=== PATIENT | female | born 1975 | race Hispanic/Latino ===

== ENCOUNTER 2019-03-19 21:02 | Emergency (ER) | payer SELFPAY ==
[2019-03-19 22:25] LABS: Absolute Lymphocytes (CBC) 2.5 K/uL (0.7-4.9); Basophils % 1.1 % (0-1.3); Hematocrit 43.5 % (36.0-45.0); Lymphocytes % 24.6 % (15.3-44.8); MPV 8.7 fL (7.6-11.3); RBC Red Blood Cell Count 5.17 M/uL (3.86-4.86)
[2019-03-19] MEDS ORDERED: ONDANSETRON 4 MG/2 ML VIAL ONE (22:25)
[2019-03-19] MEDS ORDERED: NA CHLORIDE 0.9% 1,000 ML ONE ×2 (22:25→23:27)
[2019-03-19] MEDS ORDERED: MORPHINE 4 MG/ML SYR ONE (22:25)
[2019-03-19 22:48] LABS: Albumin 3.5 g/dL (3.4-5.0); Bilirubin Total 0.3 mg/dL (0.2-1.0); Potassium 3.8 mmol/L (3.5-5.1); Protein, Total 8.4 g/dL (6.4-8.2)
[2019-03-19 23:03] LABS: Urine Blood TRACE (NEG); Urine Glucose 2+ (NEG); Urine Protein NEGATIVE (NEG); Urine Specific Gravity 1.015 (1.005-1.030); Urine pH 6.5 (5.0-7.0)
[2019-03-19] MEDS ORDERED: INSULIN -REGULAR HUMAN 50 UNIT/0.5 ML ML ONE (23:26)
[2019-03-20] MEDS ORDERED: LIDOCAINE 1% MPF 30 ML VIAL ONE (00:12)
[2019-03-20] MEDS ORDERED: CLINDAMYCIN 900MG/D5W 900 MG/50 ML IVPB IV ONE (00:56)
[2019-03-20] MEDS ORDERED: SMZ./TMP. 800/160 MG TABLET ONE (00:56)
--- NOTE | 2019-03-20 01:49 | ER ---
Nurse's Notes [facility] Name: Lizette Bonilla Age: 43 yrs Sex: Female : 1975 Arrival Date: 03/19/2019 Time: 21:06 Bed 15 Private MD: Diagnosis: Cutaneous abscess of abdominal wall Presentation: 03/19 21:30 Presenting complaint: Patient states: she has boil to groin area x 2 days which has bb gotten big and hard it broke open but is still painful she started taking some left over antibiotics cephalexin but it is not helping. Transition of care: patient was not received from another setting of care. Onset of symptoms was March 17, 2019. Risk Assessment: Do you want to hurt yourself or someone else? Patient reports no desire to harm self or others. Initial Sepsis Screen: Does the patient meet any 2 criteria? No. Patient's initial sepsis screen is negative. Does the patient have a suspected source of infection? No. Patient's initial sepsis screen is negative. Care prior to arrival: None. 21:30 Method Of Arrival: Ambulatory bb 21:30 Acuity: GLENIS 4 bb Triage Assessment: 21:32 General: Appears uncomfortable, Behavior is calm, cooperative. Pain: Complains of pain bb in groin area Pain currently is 7 out of 10 on a pain scale. Neuro: Level of Consciousness is awake, alert, obeys commands, Oriented to person, place, time, situation. Cardiovascular: No deficits noted. Respiratory: Respiratory effort is even, unlabored, Respiratory pattern is regular. GI: No deficits noted. No signs and/or symptoms were reported involving the gastrointestinal system. Derm: Skin is pink, warm \T\ dry. Abscess located on groin area. Musculoskeletal: Circulation, motion, and sensation intact. [employer]: 21:32 LMP 03/19/2019 bb Historical: - Allergies: 21:32 No Known Allergies; bb - Home Meds: 21:32 None [Active]; bb - PMHx: 21:32 None; bb - PSHx: 21:32 None; bb - Immunization history:: Adult Immunizations up to date. - Social history:: Smoking status: Patient denies any tobacco usage or history of. - Ebola Screening: : No symptoms or risks identified at this time. Screenin:00 Abuse screen: Denies threats or abuse. Denies injuries from another. Nutritional wh screening: No deficits noted. Tuberculosis screening: No symptoms or risk factors identified. Fall Risk None identified. Assessment: 22:30 General: Appears in no apparent distress. Behavior is calm, cooperative, appropriate wh for age. Pain: Complains of pain in abdomen Pain does not radiate. Pain currently is 8 out of 10 on a pain scale. Quality of pain is described as aching, Pain began 2-3 days ago. Neuro: Level of Consciousness is awake, alert, obeys commands, Oriented to person, place, time, situation, Appropriate for age. Cardiovascular: Heart tones S1 S2. Respiratory: Airway is patent Respiratory effort is even, unlabored, Respiratory pattern is regular, symmetrical, Breath sounds are clear bilaterally. GI: Abdomen is round non-distended, infected boil on lower abdomen Abd is soft Abdomen is tender to palpation. : No signs and/or symptoms were reported regarding the genitourinary system. EENT: No signs and/or symptoms were reported regarding the EENT system. Derm: Skin is intact, is healthy with good turgor. Musculoskeletal: Circulation, motion, and sensation intact. 23:50 Reassessment: Patient appears in no apparent distress at this time. No changes from previously documented assessment. Patient and/or family updated on plan of care and expected duration. Pain level reassessed. Patient is alert, oriented x 3, equal unlabored respirations, skin warm/dry/pink. 03/20 00:59 Reassessment: Patient appears in no apparent distress at this time. No changes from previously documented assessment. Patient and/or family updated on plan of care and expected duration. Pain level reassessed. Patient is alert, oriented x 3, equal unlabored respirations, skin warm/dry/pink. 01:59 Reassessment: Patient appears in no apparent distress at this time. No changes from previously documented assessment. Patient and/or family updated on plan of care and expected duration. Pain level reassessed. Patient is alert, oriented x 3, equal unlabored respirations, skin warm/dry/pink. Vital Signs: 03/19 21:32 BP 135 / 84; Pulse 98; Resp 16 S; Temp 98.7(O); Pulse Ox 98% on R/A; Weight 84.37 kg bb (R); Height 5 ft. 0 in. (152.40 cm) (R); Pain 7/10; 22:56 BP 127 / 85; Pulse 70; Resp 18; Pulse Ox 98% on R/A; 03/20 01:01 BP 138 / 81; Pulse 88; Resp 18; Pulse Ox 99% ; wh 01:59 BP 136 / 89; Pulse 87; Resp 18; Pulse Ox 95% on R/A; 03/19 21:32 Body Mass Index 36.33 (84.37 kg, 152.40 cm) ED Course: 03/19 21:06 Patient arrived in ED. cl3 21:30 Rajan Cespedes PA is PHCP. jmm 21:30 Trino Josue MD is Attending Physician. [facility] 21:32 Triage completed. bb 21:32 Arm band placed on Patient placed in an exam room, on a stretcher, on pulse oximetry. bb Family accompanied patient. 22:00 Patient has correct armband on for positive identification. Placed in gown. Bed in low wh position. Call light in reach. Side rails up X 1. Pulse ox on. NIBP on. 22:00 Inserted saline lock: 20 gauge in right antecubital area, using aseptic technique. Blood collected. 22:07 Haile Ortega is Primary Nurse. 03/20 00:00 Assist provider with I \T\ D: of an abscess on Set up I\T\D tray. Performed by Rajan Cespedes TEMI Wound packed. iodoform gauze, Dressing with 4X4s, Patient tolerated well. Administered Medications: 03/19 22:24 Drug: NS 0.9% 1000 ml Route: IV; Rate: 1 bolus; Site: right antecubital; 23:04 Follow up: Response: No adverse reaction; IV Status: Completed infusion 22:26 Drug: morphine 4 mg Route: IVP; Site: right antecubital; 23:04 Follow up: Response: No adverse reaction; Pain is decreased; RASS: Alert and Calm (0) :28 Drug: Zofran 4 mg Route: IVP; Site: right antecubital; 23:03 Follow up: Response: No adverse reaction; Nausea is decreased 23:28 Drug: Insulin Regular Human 10 units {Co-Signature: junior (Franny Escudero RN).} Route: IVP; Site: right antecubital; 03/20 00:59 Follow up: Response: No adverse reaction; Blood sugar is lowered 03/19 23:29 Drug: NS 0.9% 1000 ml Route: IV; Rate: 1 bolus; Site: right antecubital; 03/20 00:00 Drug: Lidocaine (1 %) 20 ml {Note: Adminisered by Oscar MENDOZA} Volume: 20 ml; Route: Infiltration; 00:57 Drug: Clindamycin 900 mg Route: IVPB; Infused Over: 30 mins; Site: right antecubital; 02:00 Follow up: Response: No adverse reaction; IV Status: Completed infusion 00:57 Drug: Bactrim (160 mg-800 mg (DS) 1 tablet Route: PO; 02:00 Follow up: Response: No adverse reaction Outcome: 01:49 Discharge ordered by MD. nails 02:01 Patient left the ED. Signatures: Rajan Cespedes PA PA jmm Ballard, Brenda, RN RN bb Habalo, Winsy Marlen Gomez cl3 Franny pacheco
--- NOTE | 2019-03-20 01:50 | EDPHYS ---
Physician Documentation [facility] Name: Lizette Bonilla Age: 43 yrs Sex: Female : 1975 Arrival Date: 03/19/2019 Time: 21:06 Bed 15 Private MD: ED Physician Trino Josue HPI: 03/19 22:04 This 43 yrs old Female presents to ER via Ambulatory with complaints of Boil. jmm 22:04 The patient presents with an abscess of the abdomen. Onset: The symptoms/episode jmm began/occurred gradually, 2 day(s) ago. Possible cause(s): unknown. Associated signs and symptoms: Pertinent positives: drainage, swelling, Pertinent negatives: fever. Modifying factors: the symptoms are alleviated by nothing, the symptoms are aggravated by nothing. This is a 43 year old female with no known chronic medical conditions that presents to the ED with complaints of lower abdominal swelling with drainage beginning approx 2 days ago. Patient denies fever but states she feels weak and felt like passing out. . PUNCH HAND: 21:32 LMP 03/19/2019 bb Historical: - Allergies: 21:32 No Known Allergies; bb - Home Meds: 21:32 None [Active]; bb - PMHx: 21:32 None; bb - PSHx: 21:32 None; bb - Immunization history:: Adult Immunizations up to date. - Social history:: Smoking status: Patient denies any tobacco usage or history of. - Ebola Screening: : No symptoms or risks identified at this time. ROS: 22:04 Cardiovascular: Negative for chest pain, palpitations, and edema, Respiratory: Negative jmm for shortness of breath, cough, wheezing, and pleuritic chest pain. 22:04 Constitutional: Positive for body aches. 22:04 Skin: Positive for abscess, swelling. 22:04 All other systems are negative. Exam: 22:04 Constitutional: This is a well developed, well nourished patient who is awake, alert, jmm and in no acute distress. Head/Face: atraumatic. Eyes: EOMI, no conjunctival erythema appreciated ENT: Moist Mucus Membranes Neck: Trachea midline, Supple Chest/axilla: Normal chest wall appearance and motion. Cardiovascular: Regular rate and rhythm. No edema appreciated Respiratory: Normal respirations, no respiratory distress appreciated Abdomen/GI: Non distended, soft Back: Normal ROM 22:04 Skin: swelling and induration appreciated to the lower abdomen. 22:04 Neuro: Orientation: is normal, Mentation: is normal, Memory: is normal. 22:04 Psych: Behavior/mood is pleasant, cooperative. Vital Signs: 21:32 BP 135 / 84; Pulse 98; Resp 16 S; Temp 98.7(O); Pulse Ox 98% on R/A; Weight 84.37 kg bb (R); Height 5 ft. 0 in. (152.40 cm) (R); Pain 7/10; 22:56 BP 127 / 85; Pulse 70; Resp 18; Pulse Ox 98% on R/A; wh 03/20 01:01 BP 138 / 81; Pulse 88; Resp 18; Pulse Ox 99% ; wh 01:59 BP 136 / 89; Pulse 87; Resp 18; Pulse Ox 95% on R/A; wh 03/19 21:32 Body Mass Index 36.33 (84.37 kg, 152.40 cm) Procedures: 00:39 I \T\ D: Incision and drainage was performed for an abscess of the abdomen Prepped with [facility] Betadine, Incised with #11 blade. Drained moderate amount purulent fluid. Packed with iodoform gauze, Dressing: sterile 4x4 gauze, the patient tolerated the procedure well. MDM: 03/19 21:44 Patient medically screened. [facility] 03/20 00:41 Data reviewed: vital signs, nurses notes. Counseling: I had a detailed discussion with [facility] the patient and/or guardian regarding: the historical points, exam findings, and any diagnostic results supporting the discharge/admit diagnosis, lab results, the need for outpatient follow up, to return to the emergency department if symptoms worsen or persist or if there are any questions or concerns that arise at home. ED course: Patient is alert and non toxic in appearance in the ED. Advised to follow up with pcp for reevaluation. Patient otherwise given strict return precautions. Patient understood and agrees with the plan of care. . 01:03 Data reviewed: lab test result(s). [facility] 03/19 22:03 Order name: CBC with Diff; Complete Time: 23:00 [facility] 03/19 22:03 Order name: CMP; Complete Time: 23:00 [facility] 03/19 22:50 Order name: Urine Dipstick--Ancillary (enter results); Complete Time: 23:05 pr 03/19 22:50 Order name: Urine --Ancillary (enter results); Complete Time: 23:05 pr 03/20 01:01 Order name: Glucose, Ancillary Testing; Complete Time: 01:03 [facility] 03/19 22:03 Order name: Saline Lock; Complete Time: 22:29 [facility] 03/19 22:03 Order name: Urine Dipstick-Ancillary (obtain specimen); Complete Time: 22:29 [facility] 03/19 22:17 Order name: Urine Test (obtain specimen); Complete Time: 22:29 [facility] 03/20 00:36 Order name: Fingerstick Glucose; Complete Time: 00:57 [facility] Administered Medications: 03/19 22:24 Drug: NS 0.9% 1000 ml Route: IV; Rate: 1 bolus; Site: right antecubital; 23:04 Follow up: Response: No adverse reaction; IV Status: Completed infusion :26 Drug: morphine 4 mg Route: IVP; Site: right antecubital; 23:04 Follow up: Response: No adverse reaction; Pain is decreased; RASS: Alert and Calm (0) :28 Drug: Zofran 4 mg Route: IVP; Site: right antecubital; 23:03 Follow up: Response: No adverse reaction; Nausea is decreased :28 Drug: Insulin Regular Human 10 units {Co-Signature: bb (Franny Escudero RN).} Route: IVP; Site: right antecubital; 03/20 00:59 Follow up: Response: No adverse reaction; Blood sugar is lowered 03/19 23:29 Drug: NS 0.9% 1000 ml Route: IV; Rate: 1 bolus; Site: right antecubital; 03/20 00:00 Drug: Lidocaine (1 %) 20 ml {Note: Adminisered by Oscar MENDOZA} Volume: 20 ml; Route: wh Infiltration; :57 Drug: Clindamycin 900 mg Route: IVPB; Infused Over: 30 mins; Site: right antecubital; 02:00 Follow up: Response: No adverse reaction; IV Status: Completed infusion :57 Drug: Bactrim (160 mg-800 mg (DS) 1 tablet Route: PO; 02:00 Follow up: Response: No adverse reaction Disposition: 08:04 Co-signature as Attending Physician, Trino Josue MD I agree with the assessment and jose plan of care. Disposition: 03/20/19 01:49 Discharged to Home. Impression: Cutaneous abscess of abdominal wall. - Condition is Stable. - Discharge Instructions: Skin Abscess, Hyperglycemia, Incision and Drainage, Care After. - Prescriptions for Clindamycin HCl 300 mg Oral Capsule - take 1 capsule by ORAL route every 6 hours for 10 days; 40 capsule. Ultracet 37.5- 325 mg Oral Tablet - take 1 tablet by ORAL route every 6 hours - for up to 5 days; do not exceed 8 tablets per day.; 30 tablet. Metformin 500 mg Oral Tablet - take 1 tablet by ORAL route once daily for 7 days Then take 1 tablet with morning meals AND evening meals; 21 tablet. Bactrim DS 800- 160 mg Oral Tablet - take 1 tablet by ORAL route every 12 hours for 10 days; 20 tablet. - Medication Reconciliation Form, Thank You Letter, Antibiotic Education, Prescription Opioid Use form. - Follow up: Private Physician; When: 2 - 3 days; Reason: Recheck today's complaints, Continuance of care, Re-evaluation by your physician. Signatures: Dispatcher [employer] Trino Aleman MD MD cha Mickail, Joel, PA PA jmm Ballard, Brenda, GISSELL RN Haile Enrique RN Corrections: (The following items were deleted from the chart) 02:01 01:49 03/20/2019 01:49 Discharged to Home. Impression: Cutaneous abscess of abdominal wh wall. Condition is Stable. Forms are Medication Reconciliation Form, Thank You Letter, Antibiotic Education, Prescription Opioid Use. Follow up: Private Physician; When: 2 - 3 days; Reason: Recheck today's complaints, Continuance of care, Re-evaluation by your physician. jaqui
[2019-03-20 02:41] VITALS: TEMP 98.7
[2019-03-20 02:46] VITALS: BP 136/89; O2SAT 95
== END 2019-03-20 02:01 | disposition home or self-care (01) ==
LOC: ER 21:02
PROC: 0H97XZZ Drainage of Abdomen Skin, External Approach (ICD-10-PCS; principal; 2019-03-20)
DX: L02.211 Cutaneous abscess of abdominal wall (principal)
CPT/HCPCS: 36415; 80053; 81003; 81025; 82947; 85025; 96361; 96365; 96375; 99284; J2405; J7030